=== PATIENT | female | born 1955 | race Caucasian/White ===

== ENCOUNTER 2018-11-08 05:34 | Inpatient (IN) | payer BC ==
[~2018-11-08] VITALS: Ht 167.6 cm; Wt 83.8 kg
[~2018-11-08 05:34] MED LIST: ASPI-778 PO; BETA1TAB18 PO; BUPR150T6 PO; FEXO1TAB8 PO; IBUP-24 PO; MAGN400C PO; NORCO10T PO
[2018-11-08 06:10] LABS: EOSINOPHILS # (AUTO) 0.1 X10'3 (0-0.9); HEMOGLOBIN 14.4 g/dl (12.0-16.0); MONOCYTES # (AUTO) 0.4 X10'3 (0-0.9); PLATELET COUNT 191 X10'3 (140-440); WHITE BLOOD COUNT 6.9 X10'3 (4.5-11.0)
[2018-11-08 06:13] LABS: BASOPHILS % (AUTO) 0.5 % (0-1); EOSINOPHILS % (AUTO) 1.6 % (0-6); LYMPHOCYTES # (AUTO) 1.3 X10'3 (1.1-4.8); LYMPHOCYTES % (AUTO) 18.5 % (21-51); MEAN CORPUSCULAR HGB CONC 34.3 g/dL (33.0-36.5); MEAN CORPUSCULAR VOLUME 90.4 FL (78-98); MEAN PLATELET VOLUME 9.5 FL (7.4-10.4); MONOCYTES % (AUTO) 6.1 % (2-12); NEUTROPHILS % (AUTO) 73.3 % (42-75); RED BLOOD COUNT 4.64 X10'6 (4.20-5.60); RED CELL DISTRIBUTION WIDTH 13.2 % (11.5-14.5)
[2018-11-08] MEDS ORDERED: mag hydrox/Alum hydrox/simeth 30ml oral suspension PO ONE (06:15)
[2018-11-08] MEDS ORDERED: normal saline 1000ml 1,000 ML IV ONE (06:15)
[2018-11-08] MEDS ORDERED: acetaminophen 325mg tablet PO ONE (06:15)
[2018-11-08] MEDS ORDERED: LIDOcaine Viscous 15ml cup PO ONE (06:15)
[2018-11-08] MEDS ORDERED: ondansetron/PF 4mg/2ml inj IV ONE (06:15)
[2018-11-08 06:28] LABS: PROTHROMBIN TIME 9.8 SECONDS (9.0-12.0)
[2018-11-08 06:30] LABS: ALANINE AMINOTRANSFERASE 35 U/L (12-78); ALBUMIN 3.6 G/DL (3.4-5.0); ALKALINE PHOSPHATASE 110 IU/L (46-116); ANION GAP 7 (8-16); ASPARTATE AMINO TRANSFERASE 26 U/L (10-37); BILIRUBIN,TOTAL 0.4 MG/DL (0.1-1.0); BLOOD UREA NITROGEN 16 MG/DL (7-18); CALCIUM 9.1 MG/DL (8.5-10.1); CHLORIDE 107 MMOL/L (99-107); GLUCOSE 126 MG/DL (70-104); POTASSIUM 4.3 MMOL/L (3.5-5.1); SODIUM 140 MMOL/L (135-145); TOTAL CARBON DIOXIDE 26.3 MMOL/L (24-32); TOTAL PROTEIN 7.1 G/DL (6.4-8.2); eGFR 72 ML/MIN
[2018-11-08 06:56] LABS: CLARITY,URINE SLIGHTLY CLOUDY (Clear); COLOR,URINE YELLOW (Yellow); GLUCOSE, URINE NEGATIVE (Neg); KETONES,URINE NEGATIVE (Neg); LEUKOCYTE ESTERASE ,URINE NEGATIVE (Neg); NITRITES, URINE POSITIVE (Neg); OCCULT BLOOD,URINE SMALL (Neg); PH,URINE 5.5 (4.8-8.0); PROTEIN,URINE NEGATIVE (Neg); UROBILINOGEN,URINE 0.2 E.U/dL (0.2-1.0)
[2018-11-08 07:02] LABS: UA COLLECTION TYPE CLN CATCH MIDSTREAM
[2018-11-08 07:03] LABS: BACTERIA,URINE 3+ /HPF (Neg); MUCUS STRANDS NONE SEEN /LPF (Neg); RBC,URINE 0-2 /HPF (0-2); SQUAMOUS EPITHELIAL CELL,UR NONE SEEN /LPF (FEW)
[2018-11-08] MEDS ORDERED: CefTRIAXone/D5W-Rocephin 1gm 50 ML IV ONE (07:15)
[2018-11-08 07:29] LABS: TROPONIN I < 0.04 NG/ML (0.0-0.05)
[2018-11-08] MEDS ORDERED: famotidine 20mg tablet PO ONE (07:50)
[2018-11-08] MEDS ORDERED: pantoprazole 40 MG vial IV ONE (07:50)
[2018-11-08] MEDS ORDERED: ketorolac trometh. 30mg/ml inj. IV ONE (07:50)
[2018-11-08] MEDS ORDERED: proCHLORperazine 10 MG/2 ml inj IV ONE (07:50)
[2018-11-08] MEDS ORDERED: diatrozoate meglu/diatrozoate sod (37% iodine) 120ML oral solution PO ONE ×2 (08:45)
[2018-11-08] MEDS ORDERED: diatrozoate meglu/diatrozoate sod (37% iodine) 120ML oral solution PO PRN (08:50)
[2018-11-08] MEDS ORDERED: diatr meglu/diatrizoate 30ml oral sol.-(3 dose) bottle PO PRN (08:50)
[2018-11-08] MEDS ORDERED: BUPR300T53 PO (10:24)
--- NOTE | 2018-11-08 10:49 | NUR ---
CONFIRMED WITH DR GIBSON BROCK TO PLACED NG TUBE WITH PT HX OF RUIN Y GASTRIC BYPASS
[2018-11-08] MEDS ORDERED: acetaminophen 325mg tablet PO PRN (10:55)
[2018-11-08] MEDS ORDERED: potassium Cl 40MEQ/NS 500ml 500 ML IV PRN ×2 (10:55)
[2018-11-08] MEDS ORDERED: magnesium 4gm in 100ml NS 100 ML IV PRN (10:55)
[2018-11-08] MEDS ORDERED: potassium Cl 20 mEq SR tablet PO PRN ×2 (10:55)
[2018-11-08] MEDS ORDERED: ondansetron/PF 4mg/2ml inj IV PRN (10:55)
[2018-11-08] MEDS ORDERED: mag hydrox/Alum hydrox/simeth 30ml oral suspension PO PRN (10:55)
[2018-11-08] MEDS ORDERED: magnesium Cl slow-release 64mg tablet PO PRN (10:55)
[2018-11-08] MEDS ORDERED: magnesium hydroxide 30ml (MOM) UD suspension PO PRN (10:55)
[2018-11-08] MEDS ORDERED: morphine 4 MG/ML inj SYRINge IV PRN (10:55)
[2018-11-08] MEDS ORDERED: magnesium 2GM in 50ml NS 50 ML IV PRN (10:55)
[2018-11-08] MEDS: CefTRIAXone/D5W-Rocephin 1gm 50 ML IV SCH (11:20)
[2018-11-08] MEDS: normal saline 1000ml 1,000 ML IV SCH ×2 (11:53→20:57)
--- NOTE | 2018-11-08 11:57 | NUR ---
UPDATED PT VS, MEDICATED PT WITH MORPHINE AND STARTED IV FLUIDS 100ML/HR PER ORDERS.
--- NOTE | 2018-11-08 13:01 | NUR ---
PT C/O PAIN IN EPIGASTRIC AREA, INITIAL AMOUNT OUT 450ML RUNNING LOW INTERMITTENT SUCTION, CHANGED STATUS TO CONTINUOUS SUCTION WHILE IN ROOM FOR APPROX 10 SECONDS AND DID NOT RESULT IN ANY OUTPUT, CALLED [facility] AND DOCTOR STATES REMOVE NG TUBE.
--- NOTE | 2018-11-08 17:02 | NUR ---
PT INSTRUCTED ABOUT THE POSSIBILITY OF GETTING A ROOM ASSIGNMENT AFTER CHANGE OF SHIFT, OFFERED FOR HER TO BE PLACED ON HOSPITAL BED, PT REPORTS SHE IS COMFORTABLE AND ACTUALLY PAIN FREE AT THIS TIME, PT AGREEABLE TO REMAIN ON GURNEY AT THIS TIME.
--- NOTE | 2018-11-08 19:46 | NUR ---
I have received report from Nadine SANTAMARIA RN and had the opportunity to ask questions. awaiting pt arrival
[2018-11-08 20:00] VITALS: BP 130/70
[2018-11-09] VITALS: BP 124/45
[2018-11-09 04:37] LABS: BASOPHILS % (AUTO) 0.8 % (0-1); EOSINOPHILS # (AUTO) 0.1 X10'3 (0-0.9); EOSINOPHILS % (AUTO) 2.3 % (0-6); HEMATOCRIT 35.5 % (35.0-45.0); HEMOGLOBIN 11.9 g/dl (12.0-16.0); LYMPHOCYTES # (AUTO) 1.6 X10'3 (1.1-4.8); LYMPHOCYTES % (AUTO) 29.2 % (21-51); MEAN CORPUSCULAR HEMOGLOBIN 30.6 PG (27.0-31.0); MEAN CORPUSCULAR HGB CONC 33.6 g/dL (33.0-36.5); MEAN CORPUSCULAR VOLUME 91.2 FL (78-98); MEAN PLATELET VOLUME 9.7 FL (7.4-10.4); MONOCYTES # (AUTO) 0.4 X10'3 (0-0.9); MONOCYTES % (AUTO) 7.5 % (2-12); NEUTROPHILS # (AUTO) 3.3 X10'3 (1.8-7.7); NEUTROPHILS % (AUTO) 60.2 % (42-75); PLATELET COUNT 149 X10'3 (140-440); RED BLOOD COUNT 3.89 X10'6 (4.20-5.60); WHITE BLOOD COUNT 5.5 X10'3 (4.5-11.0)
[2018-11-09 04:54] LABS: ALANINE AMINOTRANSFERASE 70 U/L (12-78); ALBUMIN 2.5 G/DL (3.4-5.0); ALBUMIN/GLOBULIN RATIO 0.9 (1.1-1.5); ALKALINE PHOSPHATASE 139 IU/L (46-116); ANION GAP 5 (8-16); ASPARTATE AMINO TRANSFERASE 58 U/L (10-37); BILIRUBIN,TOTAL 0.3 MG/DL (0.1-1.0); BLOOD UREA NITROGEN 15 MG/DL (7-18); BUN/CREATININE RATIO 21.4 (6.6-38.0); CALCIUM 7.9 MG/DL (8.5-10.1); CHLORIDE 111 MMOL/L (99-107); GLUCOSE 92 MG/DL (70-104); MAGNESIUM 1.9 MG/DL (1.5-2.4); SODIUM 143 MMOL/L (135-145); TOTAL CARBON DIOXIDE 27.2 MMOL/L (24-32); TOTAL PROTEIN 5.3 G/DL (6.4-8.2); eGFR 84 ML/MIN
[2018-11-09] MEDS: normal saline 1000ml 1,000 ML IV SCH ×2 (05:00→17:15)
--- NOTE | 2018-11-09 06:35 | NUR ---
Problems reprioritized. Patient report given, questions answered & plan of care reviewed with Arcelia JANSEN. no signs of distress, call light in reach, IV intact and IVF infusing. pt resting
[2018-11-09 08:00] VITALS: BP 118/59
[2018-11-09] MEDS: K and/or MAG REPLACEMENT MC SCH (08:00)
[2018-11-09] MEDS: CefTRIAXone/D5W-Rocephin 1gm 50 ML IV SCH (08:44)
[2018-11-09 11:16] VITALS: BP 125/70
[2018-11-09] MEDS ORDERED: butalbital/acetaminophen/caffeine (Fioricet) tablet PO PRN (11:20)
[2018-11-09 18:00] VITALS: BP 138/66
--- NOTE | 2018-11-09 18:35 | NUR ---
Patient in room [facility]. I have received report from Arcelia JANSEN and had the opportunity to ask questions and assume patient care. visitor at bedside. no signs of distress. IV intact and IVF infusing per MDs orders. pt had a clear liquid tray at bedside and the pt already complete the tray. called CT and they said to continue on with with study and to ensure she stays NPO. NPO signs now up outside the door and educated the pt about not consuming anymore liquids except the contrast until after the scan. will continue to monitor.
[2018-11-09] MEDS: diatr meglu/diatrizoate 30ml oral sol.-(3 dose) bottle PO PRN ×2 (19:34→21:12)
[2018-11-09] MEDS ORDERED: diatr meglu/diatrizoate 30ml oral sol.-(3 dose) bottle PO SCH (21:00)
--- NOTE | 2018-11-09 21:21 | NUR ---
pt left to CT. awaiting pt arrival. will given meds upon return since she was NPO prior.
[2018-11-09] MEDS: buPROPion SR 150mg tablet PO SCH (21:37)
[2018-11-10] VITALS: BP 138/65
[2018-11-10] MEDS: normal saline 1000ml 1,000 ML IV SCH (03:18)
[2018-11-10 05:19] LABS: BASOPHILS % (AUTO) 0.7 % (0-1); EOSINOPHILS # (AUTO) 0.1 X10'3 (0-0.9); HEMOGLOBIN 11.4 g/dl (12.0-16.0); MONOCYTES # (AUTO) 0.4 X10'3 (0-0.9); RED CELL DISTRIBUTION WIDTH 12.9 % (11.5-14.5)
[2018-11-10 05:21] LABS: EOSINOPHILS % (AUTO) 1.8 % (0-6); HEMATOCRIT 33.5 % (35.0-45.0); LYMPHOCYTES % (AUTO) 39.5 % (21-51); MEAN CORPUSCULAR HGB CONC 34.1 g/dL (33.0-36.5); MEAN PLATELET VOLUME 10.1 FL (7.4-10.4); MONOCYTES % (AUTO) 8.6 % (2-12); NEUTROPHILS # (AUTO) 2.4 X10'3 (1.8-7.7); NEUTROPHILS % (AUTO) 49.4 % (42-75); RED BLOOD COUNT 3.69 X10'6 (4.20-5.60); WHITE BLOOD COUNT 4.9 X10'3 (4.5-11.0)
[2018-11-10 05:26] LABS: ALANINE AMINOTRANSFERASE 52 U/L (12-78); ALBUMIN 2.6 G/DL (3.4-5.0); ALKALINE PHOSPHATASE 115 IU/L (46-116); ANION GAP 8 (8-16); ASPARTATE AMINO TRANSFERASE 33 U/L (10-37); BILIRUBIN,TOTAL 0.3 MG/DL (0.1-1.0); BLOOD UREA NITROGEN 8 MG/DL (7-18); BUN/CREATININE RATIO 11.8 (6.6-38.0); CALCIUM 7.9 MG/DL (8.5-10.1); CHLORIDE 110 MMOL/L (99-107); CREATININE 0.68 MG/DL (0.40-0.90); GLUCOSE 91 MG/DL (70-104); MAGNESIUM 1.7 MG/DL (1.5-2.4); POTASSIUM 3.7 MMOL/L (3.5-5.1); SODIUM 144 MMOL/L (135-145); TOTAL CARBON DIOXIDE 26.5 MMOL/L (24-32); TOTAL PROTEIN 5.3 G/DL (6.4-8.2); eGFR 87 ML/MIN
[2018-11-10 06:17] LABS: PLATELET COUNT 138 X10'3 (140-440)
--- NOTE | 2018-11-10 06:30 | NUR ---
Problems reprioritized. Patient report given, questions answered & plan of care reviewed with Viry JANSEN. pt resting, no signs of distress. iv intact.
--- NOTE | 2018-11-10 06:39 | NUR ---
Patient in room [facility]. I have received report from INDERJIT Gates and had the opportunity to ask questions and assume patient care.
[2018-11-10 08:00] VITALS: BP 118/56
[2018-11-10] MEDS ORDERED: BUPROPION HCL PO SCH (08:00)
[2018-11-10] MEDS: K and/or MAG REPLACEMENT MC SCH (08:00)
[2018-11-10] MEDS: buPROPion SR 150mg tablet PO SCH (08:15)
[2018-11-10] MEDS: CefTRIAXone/D5W-Rocephin 1gm 50 ML IV SCH (08:15)
[2018-11-10 12:00] VITALS: BP 124/76
[2018-11-10] MEDS ORDERED: CEFD300C3 PO (13:59)
--- NOTE | 2018-11-10 15:30 | NUR ---
Pt discharged to home with all belongings, in private vehicle, accompanied by . Discharge instructions reviewed, medications reviewed, and new prescription called to [facility]. IV DC'd, cannula intact. Pt instructed to follow up with bariatric surgeon in 1-2 weeks. Pt escorted to front lobby with by PCT.
== END 2018-11-10 15:46 | disposition home or self-care (01) | DRG 389 ==
LOC: ER 05:35 → ED HOLD 10:51 → SUR 3N 20:10
PROVIDERS: ADMIT Internal Medicine; ATTEND Hospitalist
PROC: 0D9670Z Drainage of Stomach with Drainage Device, Via Natural or Artificial Opening (ICD-10-PCS; principal; 2018-11-08)
DX: K56.600 Partial intestinal obstruction, unspecified as to cause (principal); N39.0 Urinary tract infection, site not specified; F32.9 Major depressive disorder, single episode, unspecified; B96.20 Unspecified Escherichia coli [E. coli] as the cause of diseases classified elsewhere; R51 Headache; Z80.6 Family history of leukemia; Z98.84 Bariatric surgery status; Z79.899 Other long term (current) drug therapy
CPT/HCPCS: 36415; 74176; 80053; 81001; 83605; 83735; 84484; 85025; 85610; 87070; 87077; 87088; 87186; 93005; 96361; 96365; 96375; 99285; C9113; G0378; J0696; J0780; J1885; J2270; J2405; J7030; Q9963

== ENCOUNTER 2021-07-18 06:28 | Emergency (ER) | payer MEDICARE, BC ==
[~2021-07-18] VITALS: Ht 167.6 cm; Wt 77.0 kg
[~2021-07-18 06:28] MED LIST changes: -ASPI-778 PO; -BETA1TAB18 PO; -BUPR150T6 PO; +BUPR300T53 PO; -FEXO1TAB8 PO; -IBUP-24 PO; -MAGN400C PO; -NORCO10T PO
[2021-07-18] MEDS ORDERED: aspirin 81mg tab.chew PO ONE ×2 (06:40→08:00)
[2021-07-18] MEDS ORDERED: LIDOcaine Viscous 15ml cup MM ONE (06:55)
[2021-07-18] MEDS ORDERED: sucralfate 1gm/10ml UD suspension PO STA (06:55)
[2021-07-18] MEDS ORDERED: mag hydrox/Alum hydrox/simeth 30ml oral suspension PO ONE (06:55)
[2021-07-18] MEDS ORDERED: sucralfate 1 gm tablet PO ONE (07:35)
[2021-07-18 08:32] LABS: EOSINOPHILS # (AUTO) 0.1 X10'3 (0-0.9); LYMPHOCYTES # (AUTO) 1.3 X10'3 (1.1-4.8); MONOCYTES # (AUTO) 0.4 X10'3 (0-0.9); NEUTROPHILS # (AUTO) 2.7 X10'3 (1.8-7.7); WHITE BLOOD COUNT 4.5 X10'3 (4.5-11.0)
[2021-07-18 08:35] LABS: BASOPHILS % (AUTO) 0.8 % (0-1); EOSINOPHILS % (AUTO) 2.4 % (0-6); HEMATOCRIT 40.4 % (35.0-45.0); HEMOGLOBIN 13.7 g/dl (12.0-16.0); LYMPHOCYTES % (AUTO) 28.1 % (21-51); MEAN CORPUSCULAR HEMOGLOBIN 31.3 PG (27.0-31.0); MEAN CORPUSCULAR VOLUME 92.2 FL (78-98); MEAN PLATELET VOLUME 9.7 FL (7.4-10.4); MONOCYTES % (AUTO) 8.3 % (2-12); NEUTROPHILS % (AUTO) 60.4 % (42-75); PLATELET COUNT 157 X10'3 (140-440); RED BLOOD COUNT 4.38 X10'6 (4.20-5.60); RED CELL DISTRIBUTION WIDTH 12.8 % (11.5-14.5)
[2021-07-18 08:48] LABS: ALANINE AMINOTRANSFERASE 33 U/L (12-78); ALBUMIN 3.5 G/DL (3.4-5.0); ALBUMIN/GLOBULIN RATIO 1.1 (1.1-1.5); ALKALINE PHOSPHATASE 88 IU/L (46-116); ANION GAP 4 (8-16); ASPARTATE AMINO TRANSFERASE 21 U/L (10-37); BILIRUBIN,TOTAL 0.4 MG/DL (0.1-1.0); BLOOD UREA NITROGEN 21 MG/DL (7-18); CALCIUM 8.2 MG/DL (8.5-10.1); CHLORIDE 106 MMOL/L (99-107); CREATININE 0.75 MG/DL (0.40-0.90); GLUCOSE 93 MG/DL (70-104); POTASSIUM 3.7 MMOL/L (3.5-5.1); SODIUM 140 MMOL/L (135-145); TOTAL CARBON DIOXIDE 29.9 MMOL/L (24-32); TOTAL PROTEIN 6.8 G/DL (6.4-8.2); eGFR 77 ML/MIN
[2021-07-18 08:55] LABS: MAGNESIUM 2.3 MG/DL (1.5-2.4)
[2021-07-18 09:25] LABS: D-DIMER 0.23 MG/L FEU (0-0.50)
[2021-07-18 11:04] VITALS: BP 128/76
[2021-07-21] MEDS ORDERED: CYCL-1 PO (13:57)
[2021-07-21] MEDS ORDERED: HYDR-3965 PO (13:57)
[2021-07-21] MEDS ORDERED: CETI-90 PO (15:33)
[2021-07-21] MEDS ORDERED: CHOL200074 PO (15:33)
[2021-07-21] MEDS ORDERED: MAGN400C PO (15:33)
[2021-07-21] MEDS ORDERED: CYAN10007 SQ (15:33)
[2021-07-21] MEDS ORDERED: MULT-1085 PO (15:33)
[2021-07-21] MEDS ORDERED: CHOL20004 PO (15:34)
[2021-07-25] MEDS ORDERED: HYDR-3972 PO (12:21)
== END 2021-07-18 11:05 | disposition home or self-care (01) ==
LOC: ER 06:28
DX: R07.89 Other chest pain (principal); F32.9 Major depressive disorder, single episode, unspecified; F17.200 Nicotine dependence, unspecified, uncomplicated; Z90.49 Acquired absence of other specified parts of digestive tract; Z72.89 Other problems related to lifestyle; Z79.899 Other long term (current) drug therapy
CPT/HCPCS: 36415; 71046; 80053; 83735; 83880; 84484; 85025; 85379; 93005; 99285